=== PATIENT | male | born 1980 | race Caucasian/White ===

== ENCOUNTER → 2017-01-15 | Outpatient (CLI) | payer BC ==
[~2017-01-15] MED LIST: FLEXERIL10 MG PO; LEVAQUIN500 MG PO; MELOXICAM15 MG PO; METRONIDAZOLE500 MG PO; NORCO 325 MG-51 TAB PO
[2017-01-15 16:52] LABS: HEMOGLOBIN 16.2 g/dL (14.1-18.0); LYMPH # 2.3 K/mm3 (0.7-4.5); LYMPH % 24.2 % (10-50)
[2017-01-15 20:10] LABS: BUN 15 mg/dL (7-18); GFR (ESTIMATED) 109 ML/MIN (>60)
[2017-01-17 06:37] LABS: Vitamin D, 25-Hydroxy 33.2 ng/mL (30.0-100.0)
== END ==
LOC: LAB 16:29
PROVIDERS: Physician Assistant
DX: R53.83 Other fatigue (principal)